=== PATIENT | male | born 1935 | race Two or more races ===

== ENCOUNTER 2016-10-01 11:25 | Outpatient (CLI) | payer MEDICARE, MEDICAID ==
[2016-10-01] MEDS ORDERED: VALS1TAB50 PO (14:28)
[2016-10-01] MEDS ORDERED: TAMS0.4C34 PO (14:28)
[2016-10-01] MEDS ORDERED: DILT240C2 PO (14:28)
[2016-10-01] MEDS ORDERED: APIX5TAB PO (14:28)
[2016-10-01] MEDS ORDERED: SITA100T PO (14:28)
[2016-10-01] MEDS ORDERED: FLUT1DIS3 IH (14:28)
[2016-10-01] MEDS ORDERED: [UNRECOGNIZED DRUG - CODE] PO (14:28)
[2016-10-01] MEDS ORDERED: DUTA0.5C15 PO (14:28)
[2016-10-01] MEDS ORDERED: MUPI22OI7 TP (14:28)
[2016-10-01] MEDS ORDERED: ATOR40TA PO (14:28)
[2016-10-01] MEDS ORDERED: DIGO125T PO (14:28)
[2016-10-01] MEDS ORDERED: LANS30CA10 GT (14:28)
[2016-10-01] MEDS ORDERED: TIOT18CA3 IH (14:28)
[2016-10-01] MEDS ORDERED: METO25TA3 PO (14:28)
== END 2016-10-01 23:59 | disposition home or self-care (01) ==
LOC: WOU 11:25
PROVIDERS: ATTEND Surgery
DX: I48.91 Unspecified atrial fibrillation (principal); I87.332 Chronic venous hypertension (idiopathic) with ulcer and inflammation of left lower extremity; L97.429 Non-pressure chronic ulcer of left heel and midfoot with unspecified severity; I70.263 Atherosclerosis of native arteries of extremities with gangrene, bilateral legs; C25.9 Malignant neoplasm of pancreas, unspecified; I96 Gangrene, not elsewhere classified; T45.1X5A Adverse effect of antineoplastic and immunosuppressive drugs, initial encounter; Y92.89 Other specified places as the place of occurrence of the external cause; Z79.02 Long term (current) use of antithrombotics/antiplatelets; Z85.05 Personal history of malignant neoplasm of liver; Z95.0 Presence of cardiac pacemaker; I10 Essential (primary) hypertension; G62.9 Polyneuropathy, unspecified; Z87.891 Personal history of nicotine dependence; R23.0 Cyanosis; J90 Pleural effusion, not elsewhere classified
CPT/HCPCS: A6402; G0463

== ENCOUNTER 2016-10-01 12:43 | Emergency (ER) | payer MEDICARE, MEDICAID ==
[~2016-10-01] VITALS: Ht 172.7 cm; Wt 97.1 kg
[2016-10-01] MEDS ORDERED: LET SOLN TOPICAL 8 ML UDC TP ONE (13:27)
[2016-10-01] MEDS ORDERED: DILTIAZEM HCL 25 MG IV ONE (13:55)
[2016-10-01] MEDS ORDERED: DILTIAZEM HCL 50 MG IV IV ONE (14:00)
[2016-10-01 14:02] LABS: ANION GAP 14 (5-14); CALCIUM, SERUM 8.8 mg/dL (8.5-10.1); CARBON DIOXIDE 26 mmol/L (21-32); CHLORIDE 100 mmol/L (98-107); CREATININE 1.2 mg/dL (0.6-1.3); GLUCOSE 133 mg/dL (74-106); POTASSIUM 3.6 mmol/L (3.5-5.1); SODIUM SERUM 136 mmol/L (136-145); UREA NITROGEN, BLOOD 12 mg/dL (7-18)
[2016-10-01 14:07] LABS: INR 1.27 (0.87-1.13); PROTHROMBIN TIME 13.3 SECS (9.5-12.7)
[2016-10-01 14:08] LABS: ALANINE AMINOTRANSFERASE 35 U/L (12-78); ALBUMIN 2.4 g/dL (3.4-5.0); ASPARTATE AMINOTRANSFERASE 30 U/L (15-37); BILIRUBIN,DIRECT 0.7 mg/dL (0.0-0.2); BILIRUBIN,TOTAL 1.5 mg/dL (0.2-1.0); INDIRECT BILIRUBIN 0.8 mg/dL (0.0-1.1); TOTAL PROTEIN, SERUM 6.5 g/dL (6.4-8.2)
[2016-10-01 14:10] LABS: TROPONIN I 0.071 ng/mL (0.00-0.056)
[2016-10-01 14:18] LABS: BASOPHILS % (AUTO) 0.2 % (0.0-2.0); DIFF TOTAL % 100 %; EOSINOPHILS % (AUTO) 0.1 % (0.0-6.0); HEMATOCRIT 39 % (39-51); HEMOGLOBIN 12.9 g/dL (13.5-17.5); LYMPHOCYTES # (AUTO) 0.8 /CMM (0.8-4.8); LYMPHOCYTES % (AUTO) 8.3 % (20.0-44.0); MEAN CORPUSCULAR HEMOGLOBIN 31 PG (26.0-33.0); MEAN CORPUSCULAR HGB CONC 33 g/dl (31.0-36.0); MEAN CORPUSCULAR VOLUME 93 fL (80-96); MONOCYTES # (AUTO) 1.5 /CMM (0.1-1.30); MONOCYTES % (AUTO) 15.2 % (2.0-12.0); NEUTROPHILS # (AUTO) 7.6 /CMM (1.8-8.9); NEUTROPHILS % (AUTO) 76.2 % (43.0-81.0); PLATELET COUNT (AUTO) 310 /CMM (150-450); RED BLOOD CELL COUNT(AUTO) 4.19 MIL/uL (4.5-6.0); WHITE BLOOD COUNT (AUTO) 9.9 K/uL (4.3-11.0)
[2016-10-01 14:21] LABS: LACTIC ACID 2.5 mmol/L (0.4-2.0)
[2016-10-01] MEDS ORDERED: DIGO125T PO (14:28)
[2016-10-01] MEDS ORDERED: LANS30CA10 GT (14:28)
[2016-10-01] MEDS ORDERED: SITA100T PO (14:28)
[2016-10-01] MEDS ORDERED: MUPI22OI7 TP (14:28)
[2016-10-01] MEDS ORDERED: [UNRECOGNIZED DRUG - CODE] PO (14:28)
[2016-10-01] MEDS ORDERED: DILT240C2 PO (14:28)
[2016-10-01] MEDS ORDERED: DUTA0.5C15 PO (14:28)
[2016-10-01] MEDS ORDERED: METO25TA3 PO (14:28)
[2016-10-01] MEDS ORDERED: APIX5TAB PO (14:28)
[2016-10-01] MEDS ORDERED: TIOT18CA3 IH (14:28)
[2016-10-01] MEDS ORDERED: FLUT1DIS3 IH (14:28)
[2016-10-01] MEDS ORDERED: ATOR40TA PO (14:28)
[2016-10-01] MEDS ORDERED: TAMS0.4C34 PO (14:28)
[2016-10-01] MEDS ORDERED: VALS1TAB50 PO (14:28)
[2016-10-01 14:47] LABS: *LACTIC ACID REFLEX FLAG YES
[2016-10-01] MEDS ORDERED: HYDROCODONE/APAP 5/325MG 1 EACH TABLET ONE (14:56)
[2016-10-01] MEDS ORDERED: HYDROCODONE/APAP 5/325MG 1 EACH TABLET PO ONE (15:00)
[2016-10-01 15:11] VITALS: BP 128/87
[2016-10-01 15:11] LABS: LYMPHOCYTES % (MANUAL) 8 % (16-48)
== END 2016-10-01 15:12 | disposition left against medical advice (07) ==
LOC: ER 12:47
DX: L03.116 Cellulitis of left lower limb (principal); L03.115 Cellulitis of right lower limb; I48.91 Unspecified atrial fibrillation; I50.9 Heart failure, unspecified; J90 Pleural effusion, not elsewhere classified; E87.2 Acidosis; R74.8 Abnormal levels of other serum enzymes; C25.9 Malignant neoplasm of pancreas, unspecified; G62.9 Polyneuropathy, unspecified
CPT/HCPCS: 36415; 71010; 80048; 80076; 83605; 84484; 85025; 85730; 87040 ×2; 93005; 93970; 96374; 99291; A4606; Z7610

== ENCOUNTER 2016-10-19 12:38 | Outpatient (CLI) | payer MEDICARE, MEDICAID ==
[~2016-10-19 12:38] MED LIST: APIX5TAB PO; ATOR40TA PO; DIGO125T PO; DILT240C2 PO; DUTA0.5C15 PO; FLUT1DIS3 IH; LANS30CA10 GT; METO25TA3 PO; MUPI22OI7 TP; SITA100T PO; TAMS0.4C34 PO; TIOT18CA3 IH; VALS1TAB50 PO; [UNRECOGNIZED DRUG - CODE] PO
== END 2016-10-19 23:59 | disposition home health service (06) ==
LOC: WOU 12:38
PROVIDERS: ATTEND Surgery
DX: M79.89 Other specified soft tissue disorders (principal); C25.9 Malignant neoplasm of pancreas, unspecified; T45.1X5A Adverse effect of antineoplastic and immunosuppressive drugs, initial encounter; Y92.89 Other specified places as the place of occurrence of the external cause; Z79.02 Long term (current) use of antithrombotics/antiplatelets; Z85.05 Personal history of malignant neoplasm of liver; Z95.0 Presence of cardiac pacemaker; G62.9 Polyneuropathy, unspecified; Z87.891 Personal history of nicotine dependence; J90 Pleural effusion, not elsewhere classified; R23.0 Cyanosis; I10 Essential (primary) hypertension; I48.91 Unspecified atrial fibrillation; I87.313 Chronic venous hypertension (idiopathic) with ulcer of bilateral lower extremity; L97.421 Non-pressure chronic ulcer of left heel and midfoot limited to breakdown of skin; L97.811 Non-pressure chronic ulcer of other part of right lower leg limited to breakdown of skin
CPT/HCPCS: 11042; 11045; A6402

== ENCOUNTER 2016-10-29 12:32 | Outpatient (CLI) | payer MEDICARE, MEDICAID | END 2016-10-29 23:59 | disposition home health service (06) | LOC: WOU 12:32 | PROVIDERS: ATTEND Surgery | DX: I87.2 Venous insufficiency (chronic) (peripheral) (principal); L97.421 Non-pressure chronic ulcer of left heel and midfoot limited to breakdown of skin; L97.811 Non-pressure chronic ulcer of other part of right lower leg limited to breakdown of skin; C25.9 Malignant neoplasm of pancreas, unspecified; Z85.05 Personal history of malignant neoplasm of liver; Z79.02 Long term (current) use of antithrombotics/antiplatelets; Z95.0 Presence of cardiac pacemaker; G62.9 Polyneuropathy, unspecified; Z87.891 Personal history of nicotine dependence; I48.91 Unspecified atrial fibrillation; R23.0 Cyanosis; J90 Pleural effusion, not elsewhere classified; M79.89 Other specified soft tissue disorders; T45.1X5D Adverse effect of antineoplastic and immunosuppressive drugs, subsequent encounter | CPT/HCPCS: 11042; 11045; A6402 ==

== ENCOUNTER 2016-11-05 12:34 | Outpatient (CLI) | payer MEDICARE, MEDICAID ==
[~2016-11-05 12:34] MED LIST changes: -VALS1TAB50 PO; +VALS1TAB6 PO
== END 2016-11-05 23:59 | disposition home health service (06) ==
LOC: WOU 12:34
PROVIDERS: ATTEND Surgery
DX: I96 Gangrene, not elsewhere classified (principal); L97.521 Non-pressure chronic ulcer of other part of left foot limited to breakdown of skin; L97.811 Non-pressure chronic ulcer of other part of right lower leg limited to breakdown of skin; T45.1X5A Adverse effect of antineoplastic and immunosuppressive drugs, initial encounter; Y92.89 Other specified places as the place of occurrence of the external cause; C25.9 Malignant neoplasm of pancreas, unspecified; Z85.05 Personal history of malignant neoplasm of liver; Z87.891 Personal history of nicotine dependence; I48.91 Unspecified atrial fibrillation; R23.0 Cyanosis; J90 Pleural effusion, not elsewhere classified; Z95.0 Presence of cardiac pacemaker; I10 Essential (primary) hypertension
CPT/HCPCS: 11042; 11045; A6402

== ENCOUNTER 2016-11-19 10:28 | Outpatient (CLI) | payer MEDICARE, MEDICAID | END 2016-11-19 23:59 | disposition home health service (06) | LOC: WOU 10:28 | PROVIDERS: ATTEND Surgery | DX: I96 Gangrene, not elsewhere classified (principal); I87.313 Chronic venous hypertension (idiopathic) with ulcer of bilateral lower extremity; L97.421 Non-pressure chronic ulcer of left heel and midfoot limited to breakdown of skin; L97.811 Non-pressure chronic ulcer of other part of right lower leg limited to breakdown of skin; Z85.05 Personal history of malignant neoplasm of liver; C25.9 Malignant neoplasm of pancreas, unspecified; T45.1X5D Adverse effect of antineoplastic and immunosuppressive drugs, subsequent encounter; I10 Essential (primary) hypertension; Z95.0 Presence of cardiac pacemaker; Z87.891 Personal history of nicotine dependence; I48.2 Chronic atrial fibrillation; Z79.02 Long term (current) use of antithrombotics/antiplatelets; G62.9 Polyneuropathy, unspecified | CPT/HCPCS: 11042; 11045; A6402 ==

== ENCOUNTER 2016-11-26 14:41 | Outpatient (CLI) | payer MEDICARE, MEDICAID | END 2016-11-26 23:59 | disposition home health service (06) | LOC: WOU 14:41 | PROVIDERS: ATTEND Surgery | DX: I96 Gangrene, not elsewhere classified (principal); I87.313 Chronic venous hypertension (idiopathic) with ulcer of bilateral lower extremity; L97.421 Non-pressure chronic ulcer of left heel and midfoot limited to breakdown of skin; L97.811 Non-pressure chronic ulcer of other part of right lower leg limited to breakdown of skin; Z85.05 Personal history of malignant neoplasm of liver; C25.9 Malignant neoplasm of pancreas, unspecified; T45.1X5D Adverse effect of antineoplastic and immunosuppressive drugs, subsequent encounter; I10 Essential (primary) hypertension; Z95.0 Presence of cardiac pacemaker; Z87.891 Personal history of nicotine dependence; I48.2 Chronic atrial fibrillation; Z79.02 Long term (current) use of antithrombotics/antiplatelets; G62.9 Polyneuropathy, unspecified | CPT/HCPCS: 11042; 11045; A6402 ==

== ENCOUNTER → 2016-12-03 | Outpatient (CLI) | payer MEDICARE, MEDICAID | END | disposition home health service (06) | LOC: WOU 14:10 | PROVIDERS: ATTEND Surgery | DX: I96 Gangrene, not elsewhere classified (principal); I87.2 Venous insufficiency (chronic) (peripheral); I48.91 Unspecified atrial fibrillation; C25.9 Malignant neoplasm of pancreas, unspecified; Z87.891 Personal history of nicotine dependence; L97.521 Non-pressure chronic ulcer of other part of left foot limited to breakdown of skin; L97.811 Non-pressure chronic ulcer of other part of right lower leg limited to breakdown of skin; Z85.05 Personal history of malignant neoplasm of liver; Z92.21 Personal history of antineoplastic chemotherapy; Z79.899 Other long term (current) drug therapy | CPT/HCPCS: 11042; 11045; A6402 ==

== ENCOUNTER 2016-12-10 11:39 | Outpatient (CLI) | payer MEDICARE, MEDICAID | END 2016-12-10 23:59 | disposition home or self-care (01) | LOC: WOU 11:39 | PROVIDERS: ATTEND Surgery | DX: I70.263 Atherosclerosis of native arteries of extremities with gangrene, bilateral legs (principal); C25.9 Malignant neoplasm of pancreas, unspecified; L97.521 Non-pressure chronic ulcer of other part of left foot limited to breakdown of skin; L97.811 Non-pressure chronic ulcer of other part of right lower leg limited to breakdown of skin; I48.2 Chronic atrial fibrillation; Z95.0 Presence of cardiac pacemaker; Z79.899 Other long term (current) drug therapy; Z85.05 Personal history of malignant neoplasm of liver; Z92.21 Personal history of antineoplastic chemotherapy; Z87.891 Personal history of nicotine dependence | CPT/HCPCS: 11042; 11045; A6402 ==

== ENCOUNTER 2016-12-24 11:55 | Outpatient (CLI) | payer MEDICARE, MEDICAID | END 2016-12-24 23:59 | disposition home health service (06) | LOC: WOU 11:55 | PROVIDERS: ATTEND Surgery | DX: I70.263 Atherosclerosis of native arteries of extremities with gangrene, bilateral legs (principal); L97.521 Non-pressure chronic ulcer of other part of left foot limited to breakdown of skin; L97.811 Non-pressure chronic ulcer of other part of right lower leg limited to breakdown of skin; I48.2 Chronic atrial fibrillation; Z95.0 Presence of cardiac pacemaker; Z79.899 Other long term (current) drug therapy; Z85.05 Personal history of malignant neoplasm of liver; Z92.21 Personal history of antineoplastic chemotherapy; Z87.891 Personal history of nicotine dependence; C25.9 Malignant neoplasm of pancreas, unspecified; R60.0 Localized edema | CPT/HCPCS: 11042; 11045; A6402 ==

== ENCOUNTER 2016-12-31 14:15 | Outpatient (CLI) | payer MEDICARE, MEDICAID | END 2016-12-31 23:59 | disposition home health service (06) | LOC: WOU 14:15 | PROVIDERS: ATTEND Surgery | DX: I96 Gangrene, not elsewhere classified (principal); I70.263 Atherosclerosis of native arteries of extremities with gangrene, bilateral legs; I87.2 Venous insufficiency (chronic) (peripheral); L97.521 Non-pressure chronic ulcer of other part of left foot limited to breakdown of skin; L97.811 Non-pressure chronic ulcer of other part of right lower leg limited to breakdown of skin; I48.2 Chronic atrial fibrillation; Z95.0 Presence of cardiac pacemaker; Z79.899 Other long term (current) drug therapy; Z85.05 Personal history of malignant neoplasm of liver; Z92.21 Personal history of antineoplastic chemotherapy; Z87.891 Personal history of nicotine dependence; C25.9 Malignant neoplasm of pancreas, unspecified; R60.0 Localized edema; Z79.02 Long term (current) use of antithrombotics/antiplatelets | CPT/HCPCS: 11042; A6402 ==

== ENCOUNTER 2017-01-07 13:38 | Outpatient (CLI) | payer MEDICARE, MEDICAID | END 2017-01-07 23:59 | disposition home health service (06) | LOC: WOU 13:38 | PROVIDERS: ATTEND Surgery | DX: I96 Gangrene, not elsewhere classified (principal); I87.2 Venous insufficiency (chronic) (peripheral); L97.521 Non-pressure chronic ulcer of other part of left foot limited to breakdown of skin; L97.811 Non-pressure chronic ulcer of other part of right lower leg limited to breakdown of skin; I48.2 Chronic atrial fibrillation; Z95.0 Presence of cardiac pacemaker; Z79.899 Other long term (current) drug therapy; Z85.05 Personal history of malignant neoplasm of liver; Z92.21 Personal history of antineoplastic chemotherapy; Z87.891 Personal history of nicotine dependence; C25.9 Malignant neoplasm of pancreas, unspecified; R60.0 Localized edema; Z79.02 Long term (current) use of antithrombotics/antiplatelets; I48.91 Unspecified atrial fibrillation | CPT/HCPCS: 11042; A6402 ==

== ENCOUNTER 2017-01-14 13:00 | Outpatient (CLI) | payer MEDICARE, MEDICAID | END 2017-01-14 23:59 | disposition home health service (06) | LOC: WOU 13:00 | PROVIDERS: ATTEND Surgery | DX: I96 Gangrene, not elsewhere classified (principal); I87.2 Venous insufficiency (chronic) (peripheral); L97.811 Non-pressure chronic ulcer of other part of right lower leg limited to breakdown of skin; I48.2 Chronic atrial fibrillation; Z95.0 Presence of cardiac pacemaker; Z79.899 Other long term (current) drug therapy; Z85.05 Personal history of malignant neoplasm of liver; Z92.21 Personal history of antineoplastic chemotherapy; Z87.891 Personal history of nicotine dependence; C25.9 Malignant neoplasm of pancreas, unspecified; R60.0 Localized edema; Z79.02 Long term (current) use of antithrombotics/antiplatelets; I48.91 Unspecified atrial fibrillation | CPT/HCPCS: 11042; 73630; A6402 ==

== ENCOUNTER 2017-01-19 08:47 | Outpatient (CLI) | payer MEDICARE, MEDICAID | END 2017-01-19 23:59 | disposition home or self-care (01) | LOC: WOU 08:47 | PROVIDERS: ATTEND Surgery | DX: I70.263 Atherosclerosis of native arteries of extremities with gangrene, bilateral legs (principal); I77.9 Disorder of arteries and arterioles, unspecified ==

== ENCOUNTER 2017-01-21 14:40 | Outpatient (CLI) | payer MEDICARE, MEDICAID | END 2017-01-21 23:59 | disposition home health service (06) | LOC: WOU 14:40 | PROVIDERS: ATTEND Surgery | DX: I96 Gangrene, not elsewhere classified (principal); I87.2 Venous insufficiency (chronic) (peripheral); L97.811 Non-pressure chronic ulcer of other part of right lower leg limited to breakdown of skin; I48.2 Chronic atrial fibrillation; Z95.0 Presence of cardiac pacemaker; Z79.899 Other long term (current) drug therapy; Z85.05 Personal history of malignant neoplasm of liver; Z92.21 Personal history of antineoplastic chemotherapy; Z87.891 Personal history of nicotine dependence; C25.9 Malignant neoplasm of pancreas, unspecified; R60.0 Localized edema; Z79.02 Long term (current) use of antithrombotics/antiplatelets; I48.91 Unspecified atrial fibrillation | CPT/HCPCS: 11042; A6402 ==

== ENCOUNTER → 2017-01-28 | Outpatient (CLI) | payer MEDICARE, MEDICAID | END | disposition home health service (06) | LOC: WOU 10:55 | PROVIDERS: ATTEND Surgery | DX: I96 Gangrene, not elsewhere classified (principal); I48.91 Unspecified atrial fibrillation; Z95.0 Presence of cardiac pacemaker; Z79.899 Other long term (current) drug therapy; Z85.05 Personal history of malignant neoplasm of liver; Z92.21 Personal history of antineoplastic chemotherapy; Z87.891 Personal history of nicotine dependence; C25.9 Malignant neoplasm of pancreas, unspecified; R60.0 Localized edema; Z79.02 Long term (current) use of antithrombotics/antiplatelets; G62.9 Polyneuropathy, unspecified | CPT/HCPCS: A6209; A6402; G0463 ==

== ENCOUNTER 2017-02-04 13:05 | Outpatient (CLI) | payer MEDICARE, MEDICAID | END 2017-02-04 23:59 | disposition home health service (06) | LOC: WOU 13:05 | PROVIDERS: ATTEND Surgery | DX: I96 Gangrene, not elsewhere classified (principal); I48.91 Unspecified atrial fibrillation; Z95.0 Presence of cardiac pacemaker; Z79.899 Other long term (current) drug therapy; Z85.05 Personal history of malignant neoplasm of liver; Z92.21 Personal history of antineoplastic chemotherapy; Z87.891 Personal history of nicotine dependence; C25.9 Malignant neoplasm of pancreas, unspecified; R60.0 Localized edema; Z79.2 Long term (current) use of antibiotics; G62.9 Polyneuropathy, unspecified; I87.2 Venous insufficiency (chronic) (peripheral); L97.311 Non-pressure chronic ulcer of right ankle limited to breakdown of skin | CPT/HCPCS: A6402; G0463 ==

== ENCOUNTER 2017-02-11 13:06 | Outpatient (CLI) | payer MEDICARE, MEDICAID | END 2017-02-11 23:59 | disposition home or self-care (01) | LOC: WOU 13:06 | PROVIDERS: ATTEND Surgery | DX: I96 Gangrene, not elsewhere classified (principal); I87.2 Venous insufficiency (chronic) (peripheral); L97.311 Non-pressure chronic ulcer of right ankle limited to breakdown of skin; I48.91 Unspecified atrial fibrillation; Z95.0 Presence of cardiac pacemaker; Z79.899 Other long term (current) drug therapy; Z85.05 Personal history of malignant neoplasm of liver; Z92.21 Personal history of antineoplastic chemotherapy; Z87.891 Personal history of nicotine dependence; C25.9 Malignant neoplasm of pancreas, unspecified; R60.0 Localized edema; Z79.2 Long term (current) use of antibiotics; G62.9 Polyneuropathy, unspecified | CPT/HCPCS: A6402; G0463 ==

== ENCOUNTER 2017-02-18 13:25 | Outpatient (CLI) | payer MEDICARE, MEDICAID | END 2017-02-18 23:59 | disposition home health service (06) | LOC: WOU 13:25 | PROVIDERS: ATTEND Surgery | DX: I70.261 Atherosclerosis of native arteries of extremities with gangrene, right leg (principal); I87.2 Venous insufficiency (chronic) (peripheral); Z87.891 Personal history of nicotine dependence; Z95.0 Presence of cardiac pacemaker; I48.91 Unspecified atrial fibrillation; Z85.05 Personal history of malignant neoplasm of liver; C25.9 Malignant neoplasm of pancreas, unspecified; Z92.21 Personal history of antineoplastic chemotherapy | CPT/HCPCS: A6402; G0463 ==

== ENCOUNTER 2017-02-25 12:55 | Outpatient (CLI) | payer MEDICARE, MEDICAID | END 2017-02-25 23:59 | disposition home or self-care (01) | LOC: WOU 12:55 | PROVIDERS: ATTEND Surgery | DX: I70.261 Atherosclerosis of native arteries of extremities with gangrene, right leg (principal); I87.2 Venous insufficiency (chronic) (peripheral); Z95.0 Presence of cardiac pacemaker; I48.91 Unspecified atrial fibrillation; Z85.05 Personal history of malignant neoplasm of liver; C25.9 Malignant neoplasm of pancreas, unspecified; Z92.21 Personal history of antineoplastic chemotherapy; Z87.891 Personal history of nicotine dependence | CPT/HCPCS: A6402; G0463 ==

== ENCOUNTER 2017-03-11 09:40 | Outpatient (CLI) | payer MEDICARE, MEDICAID | END 2017-03-11 23:59 | disposition home health service (06) | LOC: WOU 09:40 | PROVIDERS: ATTEND Surgery | DX: I70.261 Atherosclerosis of native arteries of extremities with gangrene, right leg (principal); I48.91 Unspecified atrial fibrillation; Z85.05 Personal history of malignant neoplasm of liver; C25.9 Malignant neoplasm of pancreas, unspecified; Z92.21 Personal history of antineoplastic chemotherapy; Z87.891 Personal history of nicotine dependence | CPT/HCPCS: A6402; G0463; Z7610 ==

== ENCOUNTER 2017-03-18 12:45 | Outpatient (CLI) | payer MEDICARE, MEDICAID | END 2017-03-18 23:59 | disposition home health service (06) | LOC: WOU 12:45 | PROVIDERS: ATTEND Surgery | DX: I70.261 Atherosclerosis of native arteries of extremities with gangrene, right leg (principal); I48.91 Unspecified atrial fibrillation; Z85.05 Personal history of malignant neoplasm of liver; C25.9 Malignant neoplasm of pancreas, unspecified; Z92.21 Personal history of antineoplastic chemotherapy; Z87.891 Personal history of nicotine dependence | CPT/HCPCS: A6402; G0463 ==

== ENCOUNTER 2017-04-01 12:40 | Outpatient (CLI) | payer MEDICARE, MEDICAID | END 2017-04-01 23:59 | disposition home health service (06) | LOC: WOU 12:40 | PROVIDERS: ATTEND Surgery | DX: I70.261 Atherosclerosis of native arteries of extremities with gangrene, right leg (principal); I48.91 Unspecified atrial fibrillation; Z85.05 Personal history of malignant neoplasm of liver; C25.9 Malignant neoplasm of pancreas, unspecified; Z92.21 Personal history of antineoplastic chemotherapy; Z87.891 Personal history of nicotine dependence | CPT/HCPCS: A6402; G0463 ==

== ENCOUNTER 2017-04-08 13:20 | Outpatient (CLI) | payer MEDICARE, MEDICAID | END 2017-04-08 23:59 | disposition home or self-care (01) | LOC: WOU 13:20 | PROVIDERS: ATTEND Surgery | DX: I70.261 Atherosclerosis of native arteries of extremities with gangrene, right leg (principal); I48.91 Unspecified atrial fibrillation; Z85.05 Personal history of malignant neoplasm of liver; C25.9 Malignant neoplasm of pancreas, unspecified; Z92.21 Personal history of antineoplastic chemotherapy; Z87.891 Personal history of nicotine dependence | CPT/HCPCS: A6402; G0463 ==

== ENCOUNTER 2017-04-15 12:38 | Outpatient (CLI) | payer MEDICARE, MEDICAID | END 2017-04-15 23:59 | disposition home health service (06) | LOC: WOU 12:38 | PROVIDERS: ATTEND Surgery | DX: I70.261 Atherosclerosis of native arteries of extremities with gangrene, right leg (principal); I48.91 Unspecified atrial fibrillation; Z85.05 Personal history of malignant neoplasm of liver; C25.9 Malignant neoplasm of pancreas, unspecified; Z92.21 Personal history of antineoplastic chemotherapy; Z87.891 Personal history of nicotine dependence; Z79.01 Long term (current) use of anticoagulants | CPT/HCPCS: A6402; G0463 ==

== ENCOUNTER 2017-04-29 12:39 | Outpatient (CLI) | payer MEDICARE, MEDICAID | END 2017-04-29 23:59 | disposition home or self-care (01) | LOC: WOU 12:39 | PROVIDERS: ATTEND Surgery | DX: I70.261 Atherosclerosis of native arteries of extremities with gangrene, right leg (principal); I48.91 Unspecified atrial fibrillation; Z85.05 Personal history of malignant neoplasm of liver; C25.9 Malignant neoplasm of pancreas, unspecified; Z92.21 Personal history of antineoplastic chemotherapy; Z87.891 Personal history of nicotine dependence; Z79.01 Long term (current) use of anticoagulants; I87.331 Chronic venous hypertension (idiopathic) with ulcer and inflammation of right lower extremity | CPT/HCPCS: A6402; G0463 ==

== ENCOUNTER 2017-05-17 13:15 | Outpatient (CLI) | payer MEDICARE, MEDICAID ==
[~2017-05-17 13:15] MED LIST changes: +ONDANSETRON HCL/PF 4 MG/2 ML VIAL ONE
== END 2017-05-17 23:59 | disposition home or self-care (01) ==
LOC: WOU 13:15
PROVIDERS: ATTEND Surgery
DX: I70.261 Atherosclerosis of native arteries of extremities with gangrene, right leg (principal); I48.91 Unspecified atrial fibrillation; Z85.05 Personal history of malignant neoplasm of liver; C25.9 Malignant neoplasm of pancreas, unspecified; Z92.21 Personal history of antineoplastic chemotherapy; Z87.891 Personal history of nicotine dependence; Z79.01 Long term (current) use of anticoagulants; I87.331 Chronic venous hypertension (idiopathic) with ulcer and inflammation of right lower extremity
CPT/HCPCS: G0463; J2405

== ENCOUNTER 2017-06-03 12:40 | Outpatient (CLI) | payer MEDICARE, MEDICAID ==
[~2017-06-03 12:40] MED LIST changes: -ONDANSETRON HCL/PF 4 MG/2 ML VIAL ONE
== END 2017-06-03 23:59 | disposition home health service (06) ==
LOC: WOU 12:40
PROVIDERS: ATTEND Surgery
DX: I70.261 Atherosclerosis of native arteries of extremities with gangrene, right leg (principal); I48.91 Unspecified atrial fibrillation; Z85.05 Personal history of malignant neoplasm of liver; C25.9 Malignant neoplasm of pancreas, unspecified; Z92.21 Personal history of antineoplastic chemotherapy; Z87.891 Personal history of nicotine dependence; Z79.01 Long term (current) use of anticoagulants; I87.331 Chronic venous hypertension (idiopathic) with ulcer and inflammation of right lower extremity
CPT/HCPCS: A6402; G0463

== ENCOUNTER 2017-06-28 12:50 | Outpatient (CLI) | payer MEDICARE, MEDICAID | END 2017-06-28 23:59 | disposition home or self-care (01) | LOC: WOU 12:50 | PROVIDERS: ATTEND Surgery | DX: I70.261 Atherosclerosis of native arteries of extremities with gangrene, right leg (principal); I48.91 Unspecified atrial fibrillation; Z85.05 Personal history of malignant neoplasm of liver; C25.9 Malignant neoplasm of pancreas, unspecified; Z92.21 Personal history of antineoplastic chemotherapy; Z87.891 Personal history of nicotine dependence; Z79.01 Long term (current) use of anticoagulants | CPT/HCPCS: G0463 ==